=== PATIENT | female | born 1975 | race Caucasian/White ===

== ENCOUNTER 2017-08-13 08:49 | Emergency (ER) | payer BC ==
[2017-08-13 09:03] VITALS: BP 121/91; PULSE 77; TEMP 98; BMI 23.0
--- NOTE | 2017-08-13 09:07 | PDOC ---
History of Present Illness - General Stated Complaint: ABDOMINAL PAIN Time Seen by Provider: 08/13/17 08:52 - History of Present Illness Initial Comments: 08/13/17 09:56 Chief complaint: Epigastric pain History of present illness: Intermittent, crampy epigastric pain since Thursday night. One episode of vomiting and diarrhea. Normal bowel movement yesterday. No hematemesis melena or bloody stool. No suspicious food ingestion of raw or undercooked meat or seafood. Pain is localized to the subxiphoid region without radiation. It also seems to be positional, more severe when lying down or lying on the right side. It was relieved with nonsteroidal medication Review of systems: Denies fever/chills, headache, sore throat, URI symptoms, cough, chest pain, shortness of breath, persistent nausea, vomiting, or diarrhea. There is been no dysuria, frequency, urgency, hesitancy, or hematuria. No vaginal bleeding or discharge. Menses regular, last menses 2 weeks ago. Past medical history: Patient has no history of dyspepsia or GERD. No history of other GI disease or surgery. No significant medical or surgical problems past or present and on no home medications other than Tums for the present illness Social history: Denies stress anxiety or depression. Denies tobacco alcohol or nonprescription drugs. Fully active and without disability Family history: Reviewed and noncontributory including GI disease and cancer, early coronary artery disease, metabolic diseases including diabetes. Physical exam: Alert and oriented well-developed well-nourished no acute distress cheerful and cooperative. No pain at present Afebrile, vital signs normal No pallor or icterus. PERRLA, fundi benign, conjunctivae, ENT clear Neck supple without bruit mass or nodes Chest clear with full breath sounds throughout bilaterally CV S1 and S2 normal without murmur rub or gallop pulses full and symmetric no JVD or edema no bruits Abdomen nondistended. Bowel sounds normal. Soft without mass or organomegaly. There is well localized tenderness in the sub-xiphoid area to deep palpation without guarding or rebound. There is absolutely no right upper quadrant, left upper quadrant, or lower abdominal/pelvic tenderness.. No CVAT Extremities no CCE Skin clear, no rash, adequate turgor and wet mucous membranes Neurological intact Impression: Gastroenteritis versus dyspepsia versus early PUD. Plan: Symptomatic treatment and follow-up if symptoms persist. Return to ER if pain becomes worse or other symptoms develop. Past History - Past Medical History Allergies/Adverse Reactions: Allergies Allergy/AdvReac Type Severity Reaction Status Date / Time No Known Allergies Allergy Unverified 11/26/12 09:55 Home Medications: Ambulatory Orders Pantoprazole Sodium [Protonix] 40 mg PO DAILY #7 tablet. 08/13/17 Medical Decision Making - Medical Decision Making 08/13/17 11:29 Patient with no further pain, nausea, or vomiting. Completely comfortable upon discharge with her mother. Trial of proton pump inhibitor prescribed, and referral to gear grinding machine operator if symptoms persist. Also instructed to return to the ER if the pain worsens or if additional symptoms develop *DC/Admit/Observation/Transfer Diagnosis at time of Disposition: Gastroenteritis - Discharge Dispostion Disposition: HOME Condition at time of disposition: Improved Admit: No - Prescriptions Prescriptions: Pantoprazole Sodium [Protonix] 40 mg PO DAILY #7 tablet.dr - Referrals Referrals: Randy Colbert MD [Staff Physician] - 1 week - Patient Instructions Printed Discharge Instructions: DI for Viral Gastroenteritis -- Adult, DI for Dyspepsia Additional Instructions: Medication as directed for one week. If symptoms persist see gear grinding machine operator for further evaluation and treatment. If pain becomes worse or other symptoms develop, return to ER for further evaluation
[2017-08-13 09:09] LABS: PH,URINE 7.5 (4.5-8); URINE APPEARANCE Clear; URINE BILIRUBIN Negative (NEGATIVE); URINE BLOOD Trace-intact (NEGATIVE); URINE COLOR YELLOW; URINE GLUCOSE (UA) Negative (NEGATIVE); URINE KETONE Negative (NEGATIVE); URINE LEUK ESTERASE TRACE (NEGATIVE); URINE NITRITE Negative (NEGATIVE); URINE PROTEIN Negative (NEGATIVE)
[2017-08-13 09:10] LABS: URINE BACTERIA MODERATE /hpf (NEGATIVE); URINE WBC 0-3 /hpf (3-5)
[2017-08-13] MEDS ORDERED: PANTOPRAZOLE 40 MG TABLET (FP) PO ONE (09:44)
[2017-08-13] MEDS ORDERED: MAG HYDROX/AL HYDROX/SIMETH 355 ML ORAL.SUSP PO ONE (09:44)
[2017-08-13] MEDS ORDERED: HYOSCYAMINE SULFATE 0.125 MG *ODT PO ONE (09:44)
[2017-08-13] MEDS ORDERED: PANTOPRAZOLE 40 MG TABLET (FP) ONE (09:47)
[2017-08-13] MEDS ORDERED: HYOSCYAMINE SULFATE 0.125 MG *ODT ONE (09:48)
[2017-08-13] MEDS ORDERED: MAG HYDROX/AL HYDROX/SIMETH 30 ML UNIT-DOSE CUP ONE (09:48)
== END 2017-08-13 10:35 | disposition home or self-care (01) ==
LOC: FER 08:49
DX: K52.9 Noninfective gastroenteritis and colitis, unspecified (principal)
CPT/HCPCS: 81003; 81015; 84703; 99282-25